=== PATIENT | male | born 1980 | race Hispanic/Latino ===

== ENCOUNTER 2024-03-04 10:21 | Inpatient (IN) | payer SELFPAY ==
[~2024-03-04] VITALS: Ht 172.7 cm; Wt 105.8 kg
[2024-03-04] VITALS (26 sets, daily range): BP systolic 159–229; BP diastolic 69–115
[~2024-03-04 10:21] MED LIST: GLYBURIDE5 M1 PO; LANTUS SOL100 UNIT/M SC; LISINOPRIL10 MG PO; LISINOPRIL20 M1 PO; METFORMIN HCL1000 MG PO; MULTIVITAMI9 PO
--- NOTE | 2024-03-04 11:20 | NUR ---
PT AMBULATED TO ROOM 5.
[2024-03-04 11:35] LABS: BASO% 0.1 % (0-3); EOS% 0.2 % (0-8); HEMATOCRIT 46.7 % (39.0-50.0); HEMOGLOBIN 16.2 g/dl (14.0-18.0); IMMATURE GRANULOCYTES 0.1 % (0.0-5.0); LYMPH% 11.4 % (15-41); MEAN CELL VOLUME 94.5 fL CALC (80.0-100.0); MEAN CORPUSCULAR HGB 32.8 pG CALC (26.0-32.0); MEAN CORPUSCULAR HGB CONC 34.7 g/dL CAL (32.0-36.0); NEUT# 7.22 thou/uL (1.82-7.42); NEUT% 82.2 % (42-76); RED BLOOD COUNT 4.94 mill/uL (4.70-6.10)
[2024-03-04] MEDS ORDERED: ONDANSETRON HCl 4 MG/2 ML SDV IV ONE (11:40)
[2024-03-04] MEDS ORDERED: Pantoprazole Sodium 40 MG VIAL (Protonix) IV ONE (11:40)
[2024-03-04] MEDS ORDERED: SODIUM CHLORIDE 0.9% 1,000 ML IV ONE ×2 (11:40→12:40)
[2024-03-04 11:42] LABS: ALBUMIN 4.9 g/dL (3.2-5.0); BILIRUBIN, TOTAL 0.8 mg/dL (0.2-1.3); CREATININE 0.6 mg/dL (0.7-1.3); POTASSIUM 4.4 mmol/l (3.5-5.1); TOTAL PROTEIN 8.9 g/dL (6.3-8.2)
[2024-03-04] MEDS ORDERED: LABETALOL HCL 100 MG/20 ML VIAL IV ONE (13:55)
--- NOTE | 2024-03-04 14:00 | NUR ---
PT DENIES N/V/D AT PRESENT TIME.
[2024-03-04] MEDS ORDERED: ACETAMINOPHEN 325 MG/TAB PO PRN (14:20)
[2024-03-04] MEDS ORDERED: MAGNESIUM HYDROXIDE 30 ML UDC PO PRN (14:20)
[2024-03-04] MEDS ORDERED: SODIUM CHLORIDE 0.9% 1,000 ML IV PRN (14:20)
[2024-03-04] MEDS ORDERED: LISINOPRIL 20 MG/TAB PO SCH ×2 (15:52→21:00)
[2024-03-04] MEDS ORDERED: hydrALAZINE HCL 20 MG/ML VIAL(1 ML) IV PRN (15:55)
--- NOTE | 2024-03-04 16:10 | NUR ---
RECEIVED PT FROM ER AND ORIENTED TO ROOM WITH KERFER MACHINE OPERATOR ON UNIT. PT INSTRUCTED RE: PANCREATITIS DX AND NEED FOR IVF AND CLEAR LIQUID DIET. IVF NS AT 125ML/HR STARTED AND MEDICATED WITH LISINOPRIL FOR BP 176/89. ACCUCHECK 231 AND PT INDICATED HE TAKES SOME KIND OF INSULIN AT HOME. PT ALSO C/O ABD PAIN 09/29 AND ERICK HADOOP INFRASTRUCTURE ARCHITECT UPDATED. CALL LIGHT IN REACH. WILL MONITOR. TELE CHECKED AND NSR 74
[2024-03-04] MEDS ORDERED: DEXTROSE 250 ML IV PRN (16:35)
[2024-03-04] MEDS ORDERED: HYDROmorphone HCL 2 MG/AMP IV PRN (16:35)
[2024-03-04] MEDS ORDERED: LORazepam 2 MG/ML IV PRN (16:55)
[2024-03-04] MEDS ORDERED: chlordiazePOXIDE HCL 25 MG CAP PO PRN (16:55)
[2024-03-04] MEDS ORDERED: MULTIPLE VITAMIN 10 ML,THIAMINE HCL 100 MG in SODIUM CHLORIDE 0.9% 1,000 ML IV SCH (16:56)
[2024-03-04] MEDS ORDERED: INSULIN LISPRO 100 UNITS/ML ML SC SCH (17:00)
[2024-03-04] MEDS ORDERED: PIPERACILLIN Sodium-Tazobactam 3.375 GM in SODIUM CHLORIDE 0.9% 100 ML IV SCH (18:00)
--- NOTE | 2024-03-04 18:36 | NUR ---
PT RESTING IN BED WITH FRIEND AT BEDSIDE. DILAUDID GIVEN FOR PAIN WITH RELIEF. PT RESTING QUIETLY WITH IVF INFUSING WELL. TELEMETRY NSR WITHOUT CHANGES. CALL LIGHT IN REACH AND SHIFT REPORT GIVEN TO ONCOMING NURSE.
[2024-03-04] MEDS ORDERED: ENOXAPARIN SODIUM 40 MG/0.4 ML SYR SC SCH (21:00)
[2024-03-04] MEDS ORDERED: PANTOPRAZOLE SODIUM Sesquihydr 40 MG/TAB PO SCH (21:00)
[2024-03-05] VITALS (8 sets, daily range): BP systolic 135–166; BP diastolic 45–86
[2024-03-05 03:59] LABS: CREATININE 0.6 mg/dL (0.7-1.3); MAGNESIUM 1.7 mg/dL (1.6-2.3); POTASSIUM 4.1 mmol/l (3.5-5.1)
[2024-03-05 04:06] LABS: ALBUMIN 3.6 g/dL (3.2-5.0); TOTAL PROTEIN 6.7 g/dL (6.3-8.2)
[2024-03-05 04:15] LABS: BASO% 0.2 % (0-3); EOS% 0.9 % (0-8); HEMATOCRIT 43.5 % (39.0-50.0); HEMOGLOBIN 15.1 g/dl (14.0-18.0); IMMATURE GRANULOCYTES 0.1 % (0.0-5.0); LYMPH% 12.8 % (15-41); MEAN CELL VOLUME 94.4 fL CALC (80.0-100.0); MEAN CORPUSCULAR HGB 32.8 pG CALC (26.0-32.0); MEAN CORPUSCULAR HGB CONC 34.7 g/dL CAL (32.0-36.0); MONO% 7.3 % (2-13); NEUT# 6.66 thou/uL (1.82-7.42); NEUT% 78.7 % (42-76); RED BLOOD COUNT 4.61 mill/uL (4.70-6.10); RED CELL DISTRI WIDTH 11.9 % (11.5-15.5)
--- NOTE | 2024-03-05 06:55 | NUR ---
REPORT RECEIVED FROM ALEIDARN
--- NOTE | 2024-03-05 07:38 | NUR ---
PT TRANSPORTED TO ULTRASOUND VIA WC ACCOMPANIED BY JAMIE GARCIAS
--- NOTE | 2024-03-05 08:25 | NUR ---
PT RESTING IN SEMI FOWLERS POSITION,A&O X3 SL[place] SPEAKING ONLY.TRANSLATION PROVIDED BY JAMIE MONROY. PT DENIES ANY CURRENT PAIN OR DISCOMFORTS, PAIN SCALE AND REPORTING EDUCATED;ASSESSMENT COMPLETED;RESPIRATIONS EVEN AND UNLABORED ON RA, CLEAR LUNG SOUNDS;ABDOMEN SOFT ON PALPATION AND ACTIVE IN ALL 4 QUADRANTS, TENDERNESS NOTED TO RIGHT UPPER QUADRANT;STRONG PEDAL PULSES;SKIN INTACT;TELE MONITORING [address];#18G TO LAC INFUSING NS @ 125ML/HR,SITE APPEARS HEALTHY;ACCUCHECK 213, PT COVERED WITH SLIDING SCALE INSULIN PER ORDER;PT DENIES ANY ADDITIONAL NEEDS AND IS ENCOURAGED TO CALL FOR ASSISTANCE IF NEEDED;FALL PRECAUTIONS IN PLACE WITH BED IN THE LOWEST POSITION AND CALL LIGHT IN REACH;FREQUENT ROUNDS MADE.
[2024-03-05] MEDS ORDERED: INSULIN GLARGINE 100 UNITS/ML SC SCH ×2 (09:00→14:00)
--- NOTE | 2024-03-05 11:20 | NUR ---
PT RESTING IN SEMI FOWLERS POSITION; RESPIRATIONS EVEN AND UNLABORED ON RA;PT DENIES ANY CURRENT PAIN OR NEEDS;IV SITE TO LAC REMAINS PATENT INFUSION BANANA BAG AT THIS TIME;TELE MONITORING IN PLACE;CIWA 0;ACCUCHECK 220, PT COVERED WITH SLIDING SCALE INSULIN PER ORDER AND SOFT DIET PROVIDED;PT ENCOURAGED TO CALL FOR ASSISTANCE IF NEEDED;CALL LIGHT IN REACH;FREQUENT ROUNDS MADE.
[2024-03-05] MEDS ORDERED: amLODIPine BESYLATE 5 MG/TAB PO SCH (14:00)
--- NOTE | 2024-03-05 15:20 | NUR ---
PT APPEARS TO LAYING IN LEFT SIDE LAYING POSITION WITH EYES CLOSED;RESPIRATIONS APPEAR EVEN AND UNLABORED ON RA;NO S/S OF DISTRESS NOTED;TELE MONITORING IN PLACE;IV SITE PATENT INFUSING BANANA BAG WITH EASE;ALL SAFETY PRECAUTIONS REMAIN IN PLACE WITH BED IN THE LOWEST POSITION AND CALL LIGHT IN REACH;FREQUENT ROUNDS MADE.
[2024-03-05 17:03] LABS: URINE BILIRUBIN - DIPSTICK Negative (NEGATIVE); URINE BLOOD DIPSTICK Trace-intact (NEGATIVE); URINE COLOR Yellow; URINE GLUCOSE - DIPSTICK >=1000 mg/dL (NEGATIVE); URINE KETONE Trace mg/dL (NEGATIVE); URINE LEUK ESTERASE Negative (NEGATIVE); URINE NITRITE - DIPSTICK Negative (Negative); URINE PH 7.5 (4.5-8.0); URINE PROTEIN - DIPSTICK 30 mg/dL (NEG-TRACE); URINE SPECIFIC GRAVITY 1.015
[2024-03-05 17:12] LABS: URINE RBC 0-2 RBC/hpf (0-5)
[2024-03-05 17:13] LABS: URINE SQUAMOUS EPITHELIAL CELL RARE EPI/hpf (0-FEW)
[2024-03-05] MEDS ORDERED: LISINOPRIL 20 MG/TAB PO SCH (21:00)
[2024-03-06 03:50] VITALS: BP 144/75
[2024-03-06 05:43] LABS: BASO% 0.4 % (0-3); EOS% 2.4 % (0-8); HEMATOCRIT 42.2 % (39.0-50.0); HEMOGLOBIN 14.7 g/dl (14.0-18.0); IMMATURE GRANULOCYTES 0.1 % (0.0-5.0); LYMPH% 18.6 % (15-41); MEAN CELL VOLUME 93.4 fL CALC (80.0-100.0); MEAN CORPUSCULAR HGB 32.5 pG CALC (26.0-32.0); MEAN CORPUSCULAR HGB CONC 34.8 g/dL CAL (32.0-36.0); MONO% 8.2 % (2-13); NEUT# 5.74 thou/uL (1.82-7.42); NEUT% 70.3 % (42-76); RED BLOOD COUNT 4.52 mill/uL (4.70-6.10); RED CELL DISTRI WIDTH 11.9 % (11.5-15.5)
[2024-03-06 06:07] LABS: ALBUMIN 3.4 g/dL (3.2-5.0); BILIRUBIN, TOTAL 0.8 mg/dL (0.2-1.3); CREATININE 0.6 mg/dL (0.7-1.3); MAGNESIUM 1.8 mg/dL (1.6-2.3); TOTAL PROTEIN 6.7 g/dL (6.3-8.2)
[2024-03-06 07:23] VITALS: BP 153/77
--- NOTE | 2024-03-06 08:10 | NUR ---
PATIENT WAS RESTING ALERT X4 . SPEAKES UGAND[place] . NO C/O PAIN AND IV INTACTS.
[2024-03-06] MEDS ORDERED: SODIUM CHLORIDE 0.9% 0 ML IV ONE (09:01)
[2024-03-06 10:20] VITALS: BP 152/62
[2024-03-06 11:42] VITALS: BP 152/67
--- NOTE | 2024-03-06 11:43 | NUR ---
PATIENT IS IN BED NO /C/O PAIN . NO SIGNS OF DISTRESS
[2024-03-06 14:58] VITALS: BP 156/81
--- NOTE | 2024-03-06 15:56 | NUR ---
ALMA IS DOING WELL NO C/0 PAIN. POSSIBLE DISCHARGE 03/06/2023 WILL CONTINUE TO MONITOR
[2024-03-06 19:21] VITALS: BP 151/53
--- NOTE | 2024-03-06 20:10 | NUR ---
PATIENT OBSERVED TO BE RESTING IN BED. NAURUAN SPEAKING. BED SIDE ASSESSMENT COMPLETE. NO COMPLAINTS OF PAIN AT THIS TIME. A&O X3. IV INFUSING PER ORDER. PATIEN BLOOD SUGAR 352. 5 UNITS GIVEN PER EMAR. BED AT LOWEST POSITION. CALL LIGHT WITH IN REACH.
--- NOTE | 2024-03-07 00:20 | NUR ---
PATIENT OBSERVED IN ROOM RESTING IN BED, PATIENT RESPONDS TO VERBAL STIMULI. UNLABORED RESP. NO VISUAL SIGNS OF DISTRESS. BED AT LOWEST POSITION. CALL LIGTH WITH IN REACH.
[2024-03-07 00:30] VITALS: BP 148/76
[2024-03-07 00:43] VITALS: BP 148/76
--- NOTE | 2024-03-07 04:23 | NUR ---
PATIENT OBSERVED TO BE IN ROOM RESTING IN BED WITH EYES CLOSED. EQUAL UNLABORED RESP. NO VISUAL SIGNS OF DISTRESS. BED AT LOWEST POSITION. CALL LIGHT WITH IN REACH.
[2024-03-07 04:30] VITALS: BP 145/73
[2024-03-07 05:09] VITALS: BP 145/73
[2024-03-07 05:26] LABS: BASO% 0.4 % (0-3); EOS% 3.2 % (0-8); HEMATOCRIT 42.1 % (39.0-50.0); HEMOGLOBIN 14.8 g/dl (14.0-18.0); IMMATURE GRANULOCYTES 0.2 % (0.0-5.0); LYMPH% 26.7 % (15-41); MEAN CELL VOLUME 93.8 fL CALC (80.0-100.0); MEAN CORPUSCULAR HGB CONC 35.2 g/dL CAL (32.0-36.0); MONO% 8.7 % (2-13); NEUT# 3.42 thou/uL (1.82-7.42); NEUT% 60.8 % (42-76); RED BLOOD COUNT 4.49 mill/uL (4.70-6.10); RED CELL DISTRI WIDTH 11.8 % (11.5-15.5)
[2024-03-07 05:41] LABS: ALBUMIN 3.3 g/dL (3.2-5.0); BILIRUBIN, TOTAL 0.7 mg/dL (0.2-1.3); CREATININE 0.6 mg/dL (0.7-1.3); MAGNESIUM 1.8 mg/dL (1.6-2.3); POTASSIUM 3.8 mmol/l (3.5-5.1); TOTAL PROTEIN 6.6 g/dL (6.3-8.2)
--- NOTE | 2024-03-07 06:55 | NUR ---
REPORT RECEIVED FROM MIGUEL SHEIKH
[2024-03-07 07:35] VITALS: BP 140/70
[2024-03-07] MEDS ORDERED: INSULIN GLARGINE 100 UNITS/ML SC SCH (09:00)
--- NOTE | 2024-03-07 09:04 | NUR ---
PATIENT IS IN BED RESTING WITH FAMILY BY BED SIDE . NO C/O PAIN. IS WANTING TO BE SENT HOME TODAY AND FOLLOW UP WITH
[2024-03-07 10:41] VITALS: BP 138/81
[2024-03-07] MEDS ORDERED: AMLODIPINE BESYL5 MG PO (10:44)
--- NOTE | 2024-03-07 11:10 | NUR ---
PT RESTING IN SEMI FOWLERS POSITION WITH FAMILY AT BEDSIDE;RESPIRATIONS EVEN AND UNLABORED ON RA;PT DENIES ANY CURRENT PAIN OR DICOMFORTS;TELE MONITORING IN PLACE;IV SITE TO LAC REMAINS PATENT;ACCUCHECK 272, PT COVERED PER SLIDING SCALE ORDER;PT EAGER TO GO HOME;DENIES ANY ADDITIONAL QUESTIONS OR NEEDS;ENCOURAGED TO CALL FOR ASSISTANCE IF NEEDED;CALL LIGHT IN REACH;FREQUENT ROUNDS MADE.
--- NOTE | 2024-03-07 12:35 | NUR ---
ALL DISCHARGE INSTRUCTIONS PROVIDED AT THIS TIME. PT INSTRUCTED TO F/U WITH PCP, AVOID ALCOHOL, STAY WELL HYDRATED, TAKE LISINIPRIL AND NORVASC DIRECTED, MONITOR BLOOD GLUCOSE;TRANSLATION PROVIDED BY JAMIE MONROY.PT VERBALIZES UNDERSTANDING AND DENIES ANY ADDITIONAL QUESTIONS OR NEEDS;IV SITE REMOVED WITH CATHETER INTACT AND TELE MONITORING D/C. PT REFUSED WC FOR D/C HOME.FREQUENT ROUNDS MADE
--- NOTE | 2024-03-07 12:40 | NUR ---
Discharge instructions given. Patient verbalizes understanding of same. Discharged in stable condition via Ambulatory to Home with friend. All belongings sent with pt. PT LEFT DEPARTMENT VIA AMBULATION ACCOMPANIED BY FRIEND FOR DISCHARGE HOME. PT REFUSED WC. ALL PERSONAL BELONGINGS LETF WITH PT. FRIEND TO TRANSPORT PT HOME.
== END 2024-03-07 12:37 | disposition home or self-care (01) | DRG 440 ==
LOC: ED 10:21 → ED-I 12:32 → ED 14:25 → MS2 14:26
PROVIDERS: Family Medicine; Nurse Practitioner Family; ADMIT Internal Medicine; ATTEND Internal Medicine
DX: K85.20 Alcohol induced acute pancreatitis without necrosis or infection (principal); F10.10 Alcohol abuse, uncomplicated; I10 Essential (primary) hypertension; E11.9 Type 2 diabetes mellitus without complications; K29.80 Duodenitis without bleeding; F17.200 Nicotine dependence, unspecified, uncomplicated; Z79.4 Long term (current) use of insulin; Z79.84 Long term (current) use of oral hypoglycemic drugs; Z20.822 Contact with and (suspected) exposure to COVID-19
CPT/HCPCS: J1171; J1650; J1815; J1920; J2405; J2470; J2543; J3411; Q9967